=== PATIENT | male | born 1985 | race African-American/Black ===

== ENCOUNTER 2018-05-14 10:04 | Emergency (ER) | payer SELFPAY ==
[~2018-05-14] VITALS: Ht 172.7 cm; Wt 77.7 kg
[2018-05-14 10:08] VITALS: BP 132/64; TEMP 98.5
[2018-05-14] MEDS ORDERED: DOXYCYCLINE HY100 MG PO (10:34)
[2018-05-14] MEDS ORDERED: CEPHALEXIN500 M1 PO (10:34)
[2018-05-14 10:39] VITALS: PULSE 78
== END 2018-05-14 10:39 | disposition home or self-care (01) ==
LOC: COL.ER 10:04
DX: L03.115 Cellulitis of right lower limb (principal); Z88.1 Allergy status to other antibiotic agents